=== PATIENT | male | born 1950 | race Asian ===

== ENCOUNTER 2016-12-04 05:11 | Emergency (ER) | payer OTHER ==
[2016-12-04 10:38] LABS: BASOPHIL % 0.1 % (0-2); PLATELET COUNT 236 x10^3mcL (130-400); RED CELL DISTRIBUTION WIDTH 12.9 % (11.5-14.5)
[2016-12-04 13:11] LABS: microscopic required? NO
[2016-12-04 14:20] LABS: CARBON DIOXIDE 27 mmol/L (21-32); CHLORIDE SERUM 105 mmol/L (98-107); GLUCOSE SERUM 195 mg/dL (74-106); POTASSIUM SERUM 3.9 mmol/L (3.5-5.1); SODIUM SERUM 140 mmol/L (136-145)
[2016-12-04 14:21] LABS: ALBUMIN 3.6 g/dL (3.4-5.0); CREATININE SERUM 0.9 mg/dL (0.7-1.3); GFR1 > 60 mL/min; TOTAL PROTEIN, SERUM 7.6 g/dL (6.4-8.2)
[2016-12-04 14:23] LABS: ALKALINE PHOSPHATASE 111 U/L (46-116); ALT/SGPT 24 U/L (16-63); AST/SGOT 19 U/L (15-37); BILIRUBIN TOTAL 0.62 mg/dL (0.20-1.00); CALCIUM 8.5 mg/dL (8.5-10.1); LIPASE 232 IU/L (73-393)
== END 2016-12-04 11:05 | disposition home or self-care (01) ==
LOC: ED 05:11
DX: R42 Dizziness and giddiness (principal); E11.9 Type 2 diabetes mellitus without complications; I10 Essential (primary) hypertension
CPT/HCPCS: 36415; 83880; G0480; J2550; J8597; Q0092